=== PATIENT | male | born 1960 | race Caucasian/White ===

== ENCOUNTER → 2016-07-29 | Outpatient (CLI) | payer BC | LOC: LAB 11:27 | PROVIDERS: ATTEND Internal Medicine Medical Oncology | DX: D68.59 Other primary thrombophilia (principal); I26.99 Other pulmonary embolism without acute cor pulmonale; Z68.28 Body mass index [BMI] 28.0-28.9, adult | CPT/HCPCS: 81240; 81241; 83090; 85240; 85250; 85270; 85280; 85300; 85303; 85306; 85390; 85598; 85610; 85613; 85670; 85730; 85732; 86147 ==